=== PATIENT | male | born 1995 | race Caucasian/White ===

== ENCOUNTER 2023-06-04 09:39 | Emergency (ER) | payer BC ==
[~2023-06-04] VITALS: Ht 172.7 cm; Wt 93.0 kg
[2023-06-04 10:15] LABS: HEMATOCRIT 41.9 % (42-54); MEAN CORPUSCULAR HEMOGLOBIN 29.8 pg (27.0-33.0); MEAN CORPUSCULAR HGB CONC 34.4 g/dL (32.0-36.0); MEAN CORPUSCULAR VOLUME 86.7 fL (79-99); PLATELET COUNT (AUTO) 236 K/uL (130-400); RED BLOOD CELL COUNT(AUTO) 4.83 MIL/uL (4.50-6.20)
[2023-06-04 10:26] LABS: CREATININE 0.9 mg/dL (0.5-1.3); POTASSIUM 3.9 mmol/L (3.5-5.1)
[2023-06-04 10:31] LABS: ALBUMIN 3.9 g/dL (3.5-5.0); BILIRUBIN,TOTAL 0.5 mg/dL (0.2-1.0)
[2023-06-04 10:51] LABS: APPEARANCE,URINE CLEAR (CLEAR); BILIRUBIN,URINE NEGATIVE (NEGATIVE); COLOR,URINE LIGHT-YELLOW (YELLOW); GLUCOSE, URINE (UA) NEGATIVE (NEGATIVE); KETONES,URINE 5 mg/dL (NEGATIVE); LEUKOCYTE ESTERASE ,URINE NEGATIVE Leu/uL (NEGATIVE); NITRATE,URINE NEGATIVE (NEGATIVE); OCCULT BLOOD,URINE NEGATIVE (NEGATIVE); PH,URINE 6.5 (5.0-8.0); PROTEIN,URINE NEGATIVE (NEGATIVE); UROBILINOGEN,URINE 0.2 mg/dL (0.2-1.0)
[2023-06-04 10:53] LABS: ADD UA MICROSCOPIC YES; RBC,URINE 0-1 /HPF (0-1); WBC,URINE 0-1 /HPF (0-1)
[2023-06-04 10:54] LABS: BACTERIA,URINE None Seen /HPF (None Seen)
[2023-06-04 10:57] LABS: AMPHET/METH SCREEN,URINE POSITIVE (NEGATIVE); BARBITURATE SCREEN, URINE NEGATIVE (NEGATIVE); BENZODIAZEPINES SCREEN,URINE NEGATIVE (NEGATIVE); CANNABINOID SCREEN,URINE POSITIVE (NEGATIVE); COCAINE SCREEN,URINE NEGATIVE (NEGATIVE); OPIATE SCREEN,URINE NEGATIVE (NEGATIVE); PHENCYCLIDINE SCREEN,URINE NEGATIVE (NEGATIVE)
[2023-06-04] MEDS ORDERED: ONDA4TAB10 PO (11:02)
[2023-06-04] MEDS ORDERED: FAMO20TA8 PO (11:02)
[2023-06-04 11:28] VITALS: BP 102/61; PULSE 68; RESP 16; O2SAT 98
[2023-06-04 11:50] LABS: LYMPHOCYTES % (MANUAL) 13 % (22-44); MAN.DIFF COMMENT-IMPRESSION MANUAL DIFFERENTIAL; MONOCYTES % (MANUAL) 7 % (2-9); PLATELET MORPHOLOGY COMMENT ADEQUATE; SEGMENTED NEUTROPHILS % 80 % (40-70); TOTAL CELLS COUNTED 100
== END 2023-06-04 11:43 | disposition home or self-care (01) ==
LOC: EDH 09:39
DX: R11.2 Nausea with vomiting, unspecified (principal); F19.10 Other psychoactive substance abuse, uncomplicated
CPT/HCPCS: 36415; 80053; 80305; 81001; 85025

== ENCOUNTER 2023-11-06 00:30 | Observation (INO) | payer SELFPAY ==
[~2023-11-06] VITALS: Ht 170.2 cm; Wt 90.5 kg
[~2023-11-06 00:30] MED LIST: FAMO20TA8 PO; ONDA-243 PO
[2023-11-06] MEDS: ondanSETRON 4MG INJ IVP ONE (01:20)
[2023-11-06] MEDS: PANTOPrazole 40 MG/VIAL IVP ONE (01:20)
[2023-11-06] MEDS: morPHINE 4 MG SYG IVP ONE (01:20)
[2023-11-06] MEDS: 0.9%NACL 1000ML 1,000 ML IV ONE (01:20)
[2023-11-06 01:33] LABS: BASOPHILS # (AUTO) 0.03 K/uL (0.00-0.20); BASOPHILS % (AUTO) 0.3 % (0.0-5.0); EOSINOPHILS # (AUTO) 0.01 K/uL (0.00-0.70); EOSINOPHILS % (AUTO) 0.1 % (0.0-8.0); HEMATOCRIT 40.1 % (42-54); IMMATURE GRANULOCYTE ABSOLUTE 0.04 K/uL (0-1); LYMPHOCYTES # (AUTO) 0.9 K/uL (1.0-4.8); LYMPHOCYTES % (AUTO) 8.7 % (21.0-51.0); MEAN CORPUSCULAR HEMOGLOBIN 29.9 pg (27.0-33.0); MEAN CORPUSCULAR HGB CONC 34.7 g/dL (32.0-36.0); MEAN CORPUSCULAR VOLUME 86.2 fL (79-99); MONOCYTES # (AUTO) 0.2 K/uL (0.1-1.0); MONOCYTES % (AUTO) 2.1 % (3.0-13.0); NEUTROPHILS # (AUTO) 9.4 K/uL (1.8-7.7); NEUTROPHILS % (AUTO) 88.4 % (40.0-77.0); PLATELET COUNT (AUTO) 245 K/uL (130-400); RED BLOOD CELL COUNT(AUTO) 4.65 MIL/uL (4.50-6.20); RED CELL DISTRIBUTION WIDTH 12.6 % (11.0-15.5); WHITE BLOOD COUNT (AUTO) 10.6 K/uL (4.8-10.8)
[2023-11-06 01:39] LABS: CREATININE 0.9 mg/dL (0.5-1.3); POTASSIUM 3.6 mmol/L (3.5-5.1)
[2023-11-06 01:44] LABS: BILIRUBIN,TOTAL 0.7 mg/dL (0.2-1.0); TOTAL PROTEIN, SERUM 7.3 g/dL (6.0-8.3)
[2023-11-06] MEDS: PROMETHAZINE HCL 25 MG/ML 1ML AMPULE IM ONE (04:13)
[2023-11-06 05:03] LABS: APPEARANCE,URINE CLEAR (CLEAR); BILIRUBIN,URINE NEGATIVE (NEGATIVE); COLOR,URINE YELLOW (YELLOW); GLUCOSE, URINE (UA) 30 mg/dL (NEGATIVE); KETONES,URINE 150 mg/dL (NEGATIVE); LEUKOCYTE ESTERASE ,URINE NEGATIVE Leu/uL (NEGATIVE); NITRATE,URINE NEGATIVE (NEGATIVE); OCCULT BLOOD,URINE NEGATIVE (NEGATIVE); PROTEIN,URINE 10 mg/dL (NEGATIVE); UROBILINOGEN,URINE 0.2 mg/dL (0.2-1.0)
[2023-11-06 05:07] LABS: ADD UA MICROSCOPIC YES
[2023-11-06 05:09] LABS: BACTERIA,URINE RARE /HPF (None Seen); MUCUS,URINE RARE LPF (None Seen); RBC,URINE 0-1 /HPF (0-1); WBC,URINE 0-1 /HPF (0-1)
[2023-11-06 05:11] LABS: AMPHET/METH SCREEN,URINE NEGATIVE (NEGATIVE); BARBITURATE SCREEN, URINE NEGATIVE (NEGATIVE); BENZODIAZEPINES SCREEN,URINE NEGATIVE (NEGATIVE); CANNABINOID SCREEN,URINE POSITIVE (NEGATIVE); COCAINE SCREEN,URINE NEGATIVE (NEGATIVE); OPIATE SCREEN,URINE POSITIVE (NEGATIVE); PHENCYCLIDINE SCREEN,URINE NEGATIVE (NEGATIVE)
[2023-11-06] MEDS: 0.9%NACL 1000ML 1,000 ML IV SCH ×2 (06:58→14:30)
[2023-11-06] MEDS ORDERED: PoTASSium chloRIDE 20MEQ/100ML 100 ML IV PRN ×2 (07:00)
[2023-11-06] MEDS ORDERED: 0.9%NACL 1000ML 1,000 ML IV SCH (07:00)
[2023-11-06] MEDS ORDERED: MAGNESIUM 2GM PREMIX 50ML 50 ML IV PRN (07:00)
[2023-11-06] MEDS ORDERED: ondanSETRON 4MG INJ IVP PRN (07:00)
[2023-11-06] MEDS ORDERED: PoTASSium chl 10% ELIXIR 20MEQ 20 MEQ/15 ML UDCUP PO PRN (07:00)
[2023-11-06 08:10] VITALS: BP 134/77; PULSE 66; RESP 19; TEMP 98.4; O2SAT 99
[2023-11-06 12:00] VITALS: BP 149/63; PULSE 81; RESP 18; TEMP 99
[2023-11-06] MEDS ORDERED: DiphenhydrAMINE HCL 50 MG/ML VIAL IV PRN (14:30)
[2023-11-06] MEDS ORDERED: chlordiazePOXIDE HCL 25 MG CAP PO PRN ×2 (14:30)
[2023-11-06] MEDS ORDERED: NITROGLYCERIN 0.4 MG SL TAB SL PRN (14:30)
[2023-11-06] MEDS ORDERED: acetaMINOPHEN 500 MG TABLET PO PRN (14:30)
[2023-11-06] MEDS ORDERED: acetaMINOPHEN 325 MG TAB PO PRN ×3 (14:30)
[2023-11-06] MEDS ORDERED: PROMETHAZINE HCL 25 MG TABLET PO PRN (14:30)
[2023-11-06] MEDS ORDERED: FAMOTIDINE 20MG VIAL IV PRN (14:30)
[2023-11-06] MEDS ORDERED: GLUCAGON 1MG KIT 1 MG ML IM PRN (14:30)
[2023-11-06] MEDS ORDERED: ZOLPidem TARTrate 5 MG TAB PO PRN (14:30)
[2023-11-06] MEDS ORDERED: PHARMACY COMMUNICATION MISC PRN (14:30)
[2023-11-06] MEDS ORDERED: hydrALAZine 20MG/ML VIAL IV PRN (14:30)
[2023-11-06] MEDS ORDERED: MAG/ALUM/SIMETH 30 ML UDCUP PO PRN (14:30)
[2023-11-06] MEDS ORDERED: DEXTROSE 50%-WATER 50 ML DISP.SYRIN IV PRN (14:30)
[2023-11-06] MEDS ORDERED: LACTULOSE 20 GM/30 ML UDCUP PO PRN (14:30)
[2023-11-06] MEDS ORDERED: ketOROlac 15MG/ML VIAL (15MG/ML) IV PRN (14:30)
[2023-11-06] MEDS ORDERED: ondanSETRON 4MG INJ IV PRN ×2 (14:30)
[2023-11-06] MEDS ORDERED: guaiFENesin-DM 200/20MG 10ML PO PRN (14:30)
[2023-11-06 16:00] VITALS: BP 128/63; PULSE 75; RESP 18; TEMP 98.9
[2023-11-06] MEDS ORDERED: INSULIN humuLIN R 100 UNIT/ML 3ML SQ SCH (16:30)
[2023-11-06] MEDS: THIAMINE HCL 100 MG, FOLic ACID 5 MG/ML VIAL 1 MG, M.V.I. IV [ADULT] 10 ML in 0.9%NACL ... IV SCH (17:42)
[2023-11-06 20:00] VITALS: BP 134/79; PULSE 72; RESP 18; TEMP 98.3
[2023-11-06] MEDS: FAMOTIDINE 20MG VIAL IV SCH (21:26)
[2023-11-06 23:51] VITALS: O2SAT 100
[2023-11-07] VITALS: BP 116/60; PULSE 68; RESP 16; TEMP 98.3
[2023-11-07 04:00] VITALS: BP 116/62; PULSE 61; RESP 16; TEMP 97.7
[2023-11-07 06:08] LABS: BASOPHILS # (AUTO) 0.04 K/uL (0.00-0.20); BASOPHILS % (AUTO) 0.5 % (0.0-5.0); EOSINOPHILS # (AUTO) 0.16 K/uL (0.00-0.70); HEMATOCRIT 39.6 % (42-54); IMMATURE GRANULOCYTE ABSOLUTE 0.02 K/uL (0-1); LYMPHOCYTES # (AUTO) 2.9 K/uL (1.0-4.8); LYMPHOCYTES % (AUTO) 36.3 % (21.0-51.0); MEAN CORPUSCULAR HEMOGLOBIN 29.8 pg (27.0-33.0); MEAN CORPUSCULAR HGB CONC 33.6 g/dL (32.0-36.0); MEAN CORPUSCULAR VOLUME 88.6 fL (79-99); MONOCYTES # (AUTO) 0.7 K/uL (0.1-1.0); MONOCYTES % (AUTO) 9.4 % (3.0-13.0); NEUTROPHILS # (AUTO) 4.1 K/uL (1.8-7.7); NEUTROPHILS % (AUTO) 51.5 % (40.0-77.0); PLATELET COUNT (AUTO) 224 K/uL (130-400); RED BLOOD CELL COUNT(AUTO) 4.47 MIL/uL (4.50-6.20); RED CELL DISTRIBUTION WIDTH 12.7 % (11.0-15.5); WHITE BLOOD COUNT (AUTO) 7.9 K/uL (4.8-10.8)
[2023-11-07 06:16] LABS: ALBUMIN 3.1 g/dL (3.5-5.0); BILIRUBIN,DIRECT 0.1 mg/dL (0.0-0.3); BILIRUBIN,TOTAL 0.5 mg/dL (0.2-1.0); CREATININE 0.8 mg/dL (0.5-1.3); POTASSIUM 3.8 mmol/L (3.5-5.1)
[2023-11-07 06:45] LABS: HEMOGLOBIN A1C 5.2 % (4.0-6.0)
[2023-11-07 08:00] VITALS: BP 126/88; PULSE 63; RESP 18; TEMP 98.3
[2023-11-07 08:52] VITALS: O2SAT 98
[2023-11-07] MEDS: MULTIVITAMIN TABLET PO SCH (08:52)
[2023-11-07] MEDS: FOLic ACID 1 MG TABLET PO SCH (08:52)
[2023-11-07] MEDS: THIAMINE HCL 100 MG/ML 2ML VIAL IM SCH (08:55)
[2023-11-07] MEDS: PoTASSium chloRIDE 20MEQ ER 20 MEQ ERTAB PO PRN (09:03)
[2023-11-07] MEDS ORDERED: FAMO20TA8 PO (10:43)
[2023-11-07] MEDS ORDERED: ONDA-105 PO (10:43)
== END 2023-11-07 12:00 | disposition home or self-care (01) ==
LOC: EDH 00:30 → EDHIP 00:31 → UNDOADMOB 06:44 → EDHIP 06:44 → 3CH 08:10
PROVIDERS: ADMIT Internal Medicine; ATTEND Internal Medicine
DX: R10.13 Epigastric pain (principal); R11.2 Nausea with vomiting, unspecified; D64.9 Anemia, unspecified; I10 Essential (primary) hypertension; F11.90 Opioid use, unspecified, uncomplicated; F12.90 Cannabis use, unspecified, uncomplicated; Z79.899 Other long term (current) drug therapy
CPT/HCPCS: 96372 ×2; 96365; 96366 ×2; 96375; 99285; 82550 ×2; 80053; 80305; 83690; 85025 ×2; 81001; 36415 ×2; 71045; 74176; 96376; 96361; 83036; 80076; 83735; 80048; 83880; 82140; 83605; 84145; G0378 ×29; J3490 ×3; J7030 ×3; J2550; J3411 ×2; J2405; J2270; J2470

== ENCOUNTER 2023-11-17 20:59 | Emergency (ER) | payer SELFPAY ==
[~2023-11-17] VITALS: Ht 170.2 cm; Wt 81.6 kg
[~2023-11-17 20:59] MED LIST changes: +ONDA-105 PO
[2023-11-17 21:37] LABS: BASOPHILS # (AUTO) 0.05 K/uL (0.00-0.20); BASOPHILS % (AUTO) 0.3 % (0.0-5.0); EOSINOPHILS # (AUTO) 0.05 K/uL (0.00-0.70); EOSINOPHILS % (AUTO) 0.3 % (0.0-8.0); HEMATOCRIT 42.6 % (42-54); IMMATURE GRANULOCYTE ABSOLUTE 0.06 K/uL (0-1); LYMPHOCYTES # (AUTO) 1.2 K/uL (1.0-4.8); LYMPHOCYTES % (AUTO) 7.8 % (21.0-51.0); MEAN CORPUSCULAR HEMOGLOBIN 29.5 pg (27.0-33.0); MEAN CORPUSCULAR VOLUME 86.8 fL (79-99); MONOCYTES # (AUTO) 0.7 K/uL (0.1-1.0); MONOCYTES % (AUTO) 4.5 % (3.0-13.0); NEUTROPHILS # (AUTO) 13.5 K/uL (1.8-7.7); NEUTROPHILS % (AUTO) 86.7 % (40.0-77.0); PLATELET COUNT (AUTO) 259 K/uL (130-400); RED BLOOD CELL COUNT(AUTO) 4.91 MIL/uL (4.50-6.20); RED CELL DISTRIBUTION WIDTH 12.9 % (11.0-15.5); WHITE BLOOD COUNT (AUTO) 15.6 K/uL (4.8-10.8)
[2023-11-17] MEDS: ondanSETRON 4MG INJ IVP ONE (21:45)
[2023-11-17] MEDS: HALOPERIDOL INJ 5 MG/ML VIAL IV STA (21:45)
[2023-11-17] MEDS: PANTOPrazole 40 MG/VIAL IVP ONE (21:45)
[2023-11-17] MEDS: LIDOCAINE HCL 2% VISCOUS 15 ML UDCUP PO ONE (21:46)
[2023-11-17] MEDS: MAG/ALUM/SIMETH 30 ML UDCUP PO ONE (21:46)
[2023-11-17] MEDS: LACTATED RINGERS 1000ML 1,000 ML IV ONE (21:46)
[2023-11-17 21:53] LABS: BILIRUBIN,TOTAL 0.7 mg/dL (0.2-1.0); TOTAL PROTEIN, SERUM 7.3 g/dL (6.0-8.3)
[2023-11-17 22:11] VITALS: TEMP 98.8
[2023-11-17 22:28] LABS: ALBUMIN 4.2 g/dL (3.5-5.0); CREATININE 1.1 mg/dL (0.5-1.3)
[2023-11-17] MEDS: ketOROlac 30MG VIAL (30MG/ML) IVP ONE (23:25)
[2023-11-17] MEDS: acetaMINOPHEN 1,000 MG/100 ML VIAL IV ONE (23:26)
[2023-11-17] MEDS ORDERED: PHARMACY COMMUNICATION MISC SCH (23:30)
[2023-11-18 01:55] LABS: AMPHET/METH SCREEN,URINE NEGATIVE (NEGATIVE); BARBITURATE SCREEN, URINE NEGATIVE (NEGATIVE); BENZODIAZEPINES SCREEN,URINE NEGATIVE (NEGATIVE); CANNABINOID SCREEN,URINE POSITIVE (NEGATIVE); COCAINE SCREEN,URINE NEGATIVE (NEGATIVE); OPIATE SCREEN,URINE NEGATIVE (NEGATIVE); PHENCYCLIDINE SCREEN,URINE NEGATIVE (NEGATIVE)
[2023-11-18] MEDS ORDERED: ONDA-243 PO (02:07)
[2023-11-18 02:45] VITALS: BP 128/61; PULSE 76; RESP 18; O2SAT 99
== END 2023-11-18 03:30 | disposition home or self-care (01) ==
LOC: EDH 20:59
DX: R11.2 Nausea with vomiting, unspecified (principal); R19.7 Diarrhea, unspecified; F12.10 Cannabis abuse, uncomplicated; Z79.899 Other long term (current) drug therapy
CPT/HCPCS: 99285; 74176; 96374; 96375; 96361; 82550; 84484; 80053; 80305; 83690; 85025; 36415; 93005; J7120; J1630; J2405; J1885; J2470